=== PATIENT | female | born 1970 | race Two or more races ===

== ENCOUNTER 2017-03-24 12:45 | Emergency (ER) | payer BC ==
[~2017-03-24] VITALS: Ht 175.3 cm; Wt 49.9 kg
[2017-03-24 12:50] VITALS: BP 92/62
[2017-03-24 14:46] LABS: APPEARANCE,URINE Clear (CLEAR); BILIRUBIN,URINE Negative (NEGATIVE); BLOOD, URINE Small Ery/uL (NEGATIVE); COLOR,URINE Yellow (YELLOW); KETONES,URINE Negative (NEGATIVE); LEUKOCYTE ESTERASE ,URINE Negative (NEGATIVE); NITRITE, URINE Negative (NEGATIVE); PH,URINE 7.5 (5.0-8.0); PROTEIN,URINE 100 mg/dl (NEGATIVE); UGLUCOSE Negative (NEGATIVE)
[2017-03-24 14:57] LABS: WBC,URINE 0-2 /HPF (0-3)
[2017-03-24 14:58] LABS: BACTERIA,URINE Rare /HPF (None Seen); SQUAMOUS EPITHELIAL CELL,UR Few /HPF (None Seen)
[2017-03-24] MEDS ORDERED: FLUCONAZOLE (100 MG) 100 MG TABLET PO ONE (15:30)
[2017-03-24] MEDS ORDERED: METRONIDAZOLE 500 MG TABLET PO ONE (15:30)
[2017-03-24] MEDS ORDERED: FLUCONAZOLE (100 MG) 100 MG TABLET ONE (15:31)
[2017-03-24] MEDS ORDERED: METRONIDAZOLE 500 MG TABLET ONE (15:31)
== END 2017-03-24 15:38 | disposition home or self-care (01) ==
LOC: ER 12:49
DX: N76.0 Acute vaginitis (principal)
CPT/HCPCS: 81001; 87210; 99284; A4606; Z7610; 81000-TC